=== PATIENT | male | born 1995 | race Caucasian/White ===

== ENCOUNTER 2017-05-19 14:11 | Emergency (ER) | payer BC ==
[2017-05-19] MEDS: IBUPROFEN 800 MG TAB PO (16:40)
[2017-05-19] MEDS: DIPHTH/TET/ACEL PERTUSS (ADULT) 0.5 ML VIAL IM* (16:40)
[2017-05-19] MEDS: LIDOCAINE 1% (MDV) 20 ML INJ SC (17:29)
== END 2017-05-19 18:53 | disposition home or self-care (01) ==
LOC: FTE 14:11
DX: S61.412A Laceration without foreign body of left hand, initial encounter (principal); J45.909 Unspecified asthma, uncomplicated; W25.XXXA Contact with sharp glass, initial encounter; Y92.9 Unspecified place or not applicable; Z23 Encounter for immunization
CPT/HCPCS: 12001; 73130-LT; 90471; 90715; 99283-25